=== PATIENT | male | born 1985 | race Native Hawaiian/Other Pacific Islander ===

== ENCOUNTER 2019-08-06 12:49 | Emergency (ER) | payer OTHER ==
[~2019-08-06] VITALS: Ht 182.9 cm; Wt 83.9 kg
[2019-08-06] MEDS ORDERED: OXYCODONE HYDRO10 MG PO (13:21)
[2019-08-06 14:00] VITALS: BP 104/91; TEMP 97.7
== END 2019-08-06 14:00 | disposition home or self-care (01) ==
LOC: ED 12:49
DX: M54.5 Low back pain (principal)
CPT/HCPCS: 96372; 99283; J1885; J2360

== ENCOUNTER 2020-02-07 13:59 | Outpatient (CLI) | payer OTHER ==
[~2020-02-07 13:59] MED LIST: OXYCODONE HYDRO10 MG PO
== END 2020-02-07 19:06 | disposition home or self-care (01) ==
LOC: RAD 13:59
DX: M54.9 Dorsalgia, unspecified (principal); M51.36 Other intervertebral disc degeneration, lumbar region; M48.00 Spinal stenosis, site unspecified; M19.90 Unspecified osteoarthritis, unspecified site; M06.9 Rheumatoid arthritis, unspecified; B19.20 Unspecified viral hepatitis C without hepatic coma